=== PATIENT | male | born 1945 | race Caucasian/White ===

== ENCOUNTER → 2016-11-19 | Outpatient (CLI) | payer MEDICARE | END | disposition home or self-care (01) | LOC: PCVCIMAG 13:36 | PROVIDERS: ATTEND Internal Medicine | DX: I70.0 Atherosclerosis of aorta (principal); I42.9 Cardiomyopathy, unspecified; E78.5 Hyperlipidemia, unspecified; I10 Essential (primary) hypertension; I48.0 Paroxysmal atrial fibrillation; Z95.0 Presence of cardiac pacemaker; Z79.01 Long term (current) use of anticoagulants | CPT/HCPCS: 80061; 93005; 93306; G0463 ==

== ENCOUNTER → 2017-06-07 | Outpatient (CLI) | payer MEDICARE | END | disposition home or self-care (01) | LOC: PCVCCLINIC 13:47 | PROVIDERS: ATTEND Internal Medicine | DX: I70.0 Atherosclerosis of aorta (principal); I42.9 Cardiomyopathy, unspecified; I48.0 Paroxysmal atrial fibrillation; I10 Essential (primary) hypertension; E78.5 Hyperlipidemia, unspecified; Z79.01 Long term (current) use of anticoagulants; Z95.0 Presence of cardiac pacemaker; Z79.899 Other long term (current) drug therapy | CPT/HCPCS: 80061; 93005; 93280; G0463 ==

== ENCOUNTER → 2017-12-08 | Outpatient (CLI) | payer MEDICARE | END | disposition home or self-care (01) | LOC: PCVCCLINIC 14:18 | DX: I48.0 Paroxysmal atrial fibrillation (principal); I70.0 Atherosclerosis of aorta; I10 Essential (primary) hypertension; E78.5 Hyperlipidemia, unspecified; R94.31 Abnormal electrocardiogram [ECG] [EKG]; Z95.0 Presence of cardiac pacemaker; Z79.01 Long term (current) use of anticoagulants; Z79.899 Other long term (current) drug therapy | CPT/HCPCS: 80061; 93005; G0463 ==

== ENCOUNTER → 2018-06-08 | Outpatient (CLI) | payer MEDICARE ==
--- NOTE | 2018-06-08 15:36 | PCVCIMAG ---
APPROVED REPORT Study performed: 06/08/2018 13:35:13 EXAM: Comprehensive 2D, Doppler, and color-flow Echocardiogram Patient Location: Echo lab Room #: 2Status: routine BSA: 2.06 HR: 63 bpmBP: 122/62 mmHg Rhythm: Pacemaker Other Information Study Quality: Adequate Risk Factors: Cardiac Risk Factors: HTN, Hyperlipidemia Indications Atrial Fibrillation Pacemaker Cardiomyopathy Complete heart block, PAF 2D Dimensions IVSd: 16.74 (7-11mm)LVOT Diam: 21.18 (18-24mm) LVDd: 48.61 mm PWd: 11.42 (7-11mm)Ascending Ao: 33.26 (22-36mm) LVDs: 32.05 (25-40mm) Left Atrium: 39.23 (27-40mm) Aortic Root: 25.37 mm LV Single Plane 4CH: 46.11 % LV Single Plane 2CH: 57.90 % Biplane EF: 53.4 % Volumes Left Atrial Volume (Systole) Single Plane 4CH: 82.14 mLSingle Plane 2CH: 83.10 mL Biplane LA Volume: 84.00 mLLA ESV Index: 41.00 mL/m2 Aortic Valve AoV Peak Singh.: 1.27 m/s AO Peak Gr.: 6.41 mmHgLVOT Max P.90 mmHg LVOT Max V: 0.99 m/s ELIAS Vmax: 2.75 cm2 Mitral Valve E/A Ratio: 0.5 MV Decel. Time: 223.24 ms MV E Max Singh.: 0.29 m/s MV A Singh.: 0.57 m/s IVRT: 150.52 ms TDI E/Lateral E': 4.14E/Medial E': 5.80 Medial E' Singh.: 0.05 m/s Lateral E' Singh.: 0.07 m/s Pulmonary Valve PV Peak Singh.: 0.98 m/sPV Peak Gr.: 3.85 mmHg Pulmonary Vein P Vein S: 0.48 m/sP Vein A: 0.27 m/s P Vein D: 0.25 m/sP Vein A Dur.: 138.4 msec P Vein S/D Ratio: 1.92 Tricuspid Valve TR Peak Singh.: 2.30 m/s TR Peak Gr.: 21.13 mmHg TV Vmax: 0.53 m/sPA Pressure: 28.00 mmHg Left Ventricle The left ventricle is normal size. Discordant septal motion consistent with paced rhythm. LVH with asymetric septal hypertrophy Left ventricular systolic function is mildly decreased. LVEF is 45-50%. Grade I - abnormal relaxation pattern. Right Ventricle The right ventricle is normal size. The right ventricular systolic function is normal. Atria Left atrium is mildly dilated. The right atrium size is normal. Aortic Valve Aortic valve is trileaflet. No aortic regurgitation is present. There is no aortic valvular stenosis. Mitral Valve Mild mitral annular calcification Mild mitral regurgitation. No evidence of mitral valve stenosis. Tricuspid Valve The tricuspid valve is normal in structure. There is no tricuspid valve regurgitation noted. Pulmonic Valve The pulmonary valve is normal in structure. There is no pulmonic valvular regurgitation. Great Vessels The aortic root is normal in size. The ascending aorta is normal in size. Aortic arch is not well visualized. IVC is normal in size and collapses >50% with inspiration. Pericardium There is no pericardial effusion. There is no pleural effusion. <Conclusion> Left ventricular systolic function is mildly decreased. LVH with asymetric septal hypertrophy Discordant septal motion consistent with paced rhythm. LVEF is 45-50%. Mild diastolic dysfunction Left atrium is mildly dilated. Aortic valve is trileaflet. No aortic regurgitation or stenosis Mild mitral annular calcification. Mild mitral regurgitation. Pulmonary artery pressure could not be reliably ascertained There is no pericardial effusion.
== END | disposition home or self-care (01) ==
LOC: PCVCIMAG 13:40
PROVIDERS: ATTEND Internal Medicine
DX: I05.1 Rheumatic mitral insufficiency (principal); I70.0 Atherosclerosis of aorta; I10 Essential (primary) hypertension; I25.10 Atherosclerotic heart disease of native coronary artery without angina pectoris; I48.0 Paroxysmal atrial fibrillation; I48.2 Chronic atrial fibrillation; E78.5 Hyperlipidemia, unspecified; I45.9 Conduction disorder, unspecified; I42.9 Cardiomyopathy, unspecified; Z79.01 Long term (current) use of anticoagulants; Z95.0 Presence of cardiac pacemaker
CPT/HCPCS: 80061; 93005; 93306; G0463

== ENCOUNTER → 2018-12-26 | Outpatient (CLI) | payer OTHER | END | disposition home or self-care (01) | LOC: PCVCCLINIC 14:00 | PROVIDERS: ATTEND Internal Medicine | DX: I70.0 Atherosclerosis of aorta (principal); I25.10 Atherosclerotic heart disease of native coronary artery without angina pectoris; I48.0 Paroxysmal atrial fibrillation; I10 Essential (primary) hypertension; E78.5 Hyperlipidemia, unspecified; Z95.0 Presence of cardiac pacemaker; Z79.01 Long term (current) use of anticoagulants; Z79.899 Other long term (current) drug therapy | CPT/HCPCS: 36415; 80061; 93005; 93280; G0463 ==